=== PATIENT | male | born 1995 | race Two or more races ===

== ENCOUNTER 2017-02-23 19:21 | Emergency (ER) | payer MEDICAID, OTHER ==
[~2017-02-23] VITALS: Ht 175.3 cm; Wt 59.0 kg
[2017-02-23 19:34] VITALS: BP 157/82
[2017-02-23] MEDS ORDERED: IBUPROFEN 600 MG TAB PO ONE (20:30)
[2017-02-23] MEDS ORDERED: BACLOFEN 10 MG TAB PO ONE (20:30)
== END 2017-02-23 20:33 | disposition home or self-care (01) ==
LOC: ER 19:21
DX: S13.9XXA Sprain of joints and ligaments of unspecified parts of neck, initial encounter (principal); S46.911A Strain of unspecified muscle, fascia and tendon at shoulder and upper arm level, right arm, initial encounter; R51 Headache; W21.89XA Striking against or struck by other sports equipment, initial encounter; Y93.66 Activity, soccer; Y92.89 Other specified places as the place of occurrence of the external cause; Y99.8 Other external cause status
CPT/HCPCS: 70450; 72125

== ENCOUNTER 2018-03-26 15:35 | Emergency (ER) | payer SELFPAY ==
[~2018-03-26] VITALS: Ht 177.8 cm; Wt 61.2 kg
[2018-03-26 15:55] LABS: Urine WBC None Seen /hpf (0 - 3)
[2018-03-26 16:34] LABS: Urine Bacteria NONE SEEN /hpf (None Seen); Urine Blood Negative /uL (Negative); Urine Mucus FEW (None Seen); Urine Specific Gravity 1.037 (1.001-1.035)
[2018-03-26] MEDS ORDERED: KETOROLAC TROMETH 60MG/2ML VIAL IM ONE (17:30)
[2018-03-26 19:16] VITALS: BP 140/79
== END 2018-03-26 19:17 | disposition home or self-care (01) ==
LOC: ER 15:37
DX: K40.90 Unilateral inguinal hernia, without obstruction or gangrene, not specified as recurrent (principal)
CPT/HCPCS: 74176; 81001; 96372; 99284; J1885